=== PATIENT | female | born 1995 | race Caucasian/White ===

== ENCOUNTER 2017-05-01 16:22 | Emergency (ER) | payer BC ==
[~2017-05-01] VITALS: Ht 180.3 cm; Wt 54.4 kg
--- OUTSIDE RECORDS SUMMARY | 2017-05-01 16:28 | XMS REPORT ---
Author MANUEL [facility] eClinicalWorks Address Unknown Phone Unavailable Care Team Providers Care Apparel Fashion Designer Name Role Phone MANUEL FLORES CP Unavailable Allergies, Adverse Reactions, Alerts Substance Reaction Event Type Augmentin rash Drug Allergy Problems Problem Type Condition Code Onset Dates Condition Status Problem Anxiety F41.9 Active Problem OCP (oral contraceptive pills) initiation Z30.011 Active Problem Major depressive disorder with single episode, remission status unspecified F32.9 Active Assessment Major depressive disorder with single episode, remission status unspecified F32.9 Active Assessment Anxiety F41.9 Active Problem Acne, unspecified L70.9 Active Problem Irregular menses N92.6 Active Medications Medication Code System Code Instructions Start Date End Date Status Dosage Lexapro [facility] [address]-39 10 mg Orally Once a day Jun 01, 2016 1 tablet Procedures Procedure Coding System Code Date Office Visit, Est Pt., Level 3 CPT-4 46060 Jun 01, 2016 Vital Signs Date/Time: Jun 01, 2016 Cardiac Monitoring Heart Rate 96 bpm Weight 121 lbs Height 69 in BMI 17.87 Index Blood Pressure Diastolic 68 mmHg Blood Pressure Systolic 98 mmHg Results No Known Results Summary Purpose eClinicalWorks Submission
[2017-05-01] MEDS ORDERED: HYDR-3812 (16:54)
[2017-05-01] MEDS ORDERED: PRD20T (16:54)
[2017-05-01] MEDS ORDERED: IOHEXOL 350 MG/ML 100 ML (OMNIPAQUE 350) VIAL IV ONE (17:00)
[2017-05-01] MEDS ORDERED: NS 100 ML (IVPB) BAG IV ONE (17:00)
--- NOTE | 2017-05-01 17:03 | ED General ---
General Chief Complaint: Chest Wall/Rib Pain Stated Complaint: L SIDE RIB PAIN Nursing Triage Note: AMB TO ED C/O R RIB PAIN FOR 2 MONTHS WAS SEEN X1 WEEK AGO AT [facility] CXR NEG. WS GIVEN STEROIDS AND HYDROCODONE NOT ANHY BETTER. Nursing Sepsis Screen: No Definite Risk Source of Information: Patient Exam Limitations: No Limitations History of Present Illness Time Seen by Provider: 17:02 Initial Comments To ER with left upper rib pain for 2 months. Denies any known injury. She was seen [address] [facility] and had an x-ray done which she was told was unremarkable. She is currently on hydrocodone and steroids but denies improvement. Pain is worse with laying on the left side. She has nausea intermittently but no vomiting. She does have some swollen lymph nodes in the sore throat that began yesterday she states. Timing/Duration: Other Severity: Moderate Associated Systoms: Denies Symptoms Allergies and Home Medications Allergies Coded Allergies: amoxicillin (Verified Allergy, Unknown, 05/01/17) clavulanic acid (Verified Allergy, Unknown, 05/01/17) Home Medications Hydrocodone/Acetaminophen 1 Each Tablet, (Reported) Prednisone 20 Mg Tab, (Reported) Constitutional: see HPI, No chills, No fever EENTM: see HPI Respiratory: no symptoms reported Cardiovascular: no symptoms reported Genitourinary: no symptoms reported Musculoskeletal: no symptoms reported Skin: no symptoms reported Psychiatric/Neurological: No Symptoms Reported Hematologic/Lymphatic: No Symptoms Reported Past Jnakyvo-Wsdfis-Zihwpj Hx Patient Social History Alcohol Use: Occasionally Uses Recreational Drug Use: No Smoking Status: Current Everyday Smoker Recent Foreign Travel: No Contact w/Someone Who Travel: No Recent Infectious Disease Expo: No Seasonal Allergies Seasonal Allergies: No Surgeries History of Surgeries: No Respiratory History of Respiratory Disorde: No Cardiovascular History of Cardiac Disorders: No Neurological History of Neurological Disord: No Genitourinary History of Genitourinary Disor: No Gastrointestinal History of Gastrointestinal Di: No Musculoskeletal History of Musculoskeletal Dis: No Endocrine History of Endocrine Disorders: No Integumentary History of Skin or Integumenta: No Physical Exam Vital Signs Vital Sign - Last 12Hours 05/01/17 16:35 Temp 99.0 Pulse 74 Resp 18 B/P (MAP) 131/74 Pulse Ox 98 O2 Delivery Room Air Capillary Refill : Less Than 3 Seconds General Appearance: No Apparent Distress, WD/WN Eyes: Bilateral Eye Normal Inspection, Bilateral Eye PERRL, Bilateral Eye EOMI HEENT: PERRL/EOMI, TMs Normal, Normal ENT Inspection Neck: Full Range of Motion, Normal Inspection, No Lymphadenopathy (L), No Lymphadenopathy (R) Respiratory: No Accessory Muscle Use, No Respiratory Distress Cardiovascular: Regular Rate, Rhythm, Normal Peripheral Pulses Gastrointestinal: Non Tender, Soft Extremity: Normal Capillary Refill, No Calf Tenderness Neurologic/Psychiatric: Alert, Oriented x3 Progress/Results/Core Measures Results/Orders Lab Results Laboratory Tests Test 05/01/17 17:10 05/01/17 17:13 Range/Units White Blood Count 12.7 H 4.3-11.0 10^3/uL Red Blood Count 4.72 4.35-5.85 10^6/uL Hemoglobin 14.2 11.5-16.0 G/DL Hematocrit 42 35-52 % Mean Corpuscular Volume 89 80-99 FL Mean Corpuscular Hemoglobin 30 25-34 PG Mean Corpuscular Hemoglobin Concent 34 32-36 G/DL Red Cell Distribution Width 13.5 10.0-14.5 % Platelet Count 317 130-400 10^3/uL Mean Platelet Volume 9.9 7.4-10.4 FL Neutrophils (%) (Auto) 55 42-75 % Lymphocytes (%) (Auto) 33 12-44 % Monocytes (%) (Auto) 11 0-12 % Eosinophils (%) (Auto) 1 0-10 % Basophils (%) (Auto) 1 0-10 % Neutrophils # (Auto) 7.0 1.8-7.8 X 10^3 Lymphocytes # (Auto) 4.2 H 1.0-4.0 X 10^3 Monocytes # (Auto) 1.4 H 0.0-1.0 X 10^3 Eosinophils # (Auto) 0.1 0.0-0.3 10^3/uL Basophils # (Auto) 0.1 0.0-0.1 10^3/uL Sodium Level 140 135-145 MMOL/L Potassium Level 3.8 3.6-5.0 MMOL/L Chloride Level 103 98-107 MMOL/L Carbon Dioxide Level 29 21-32 MMOL/L Anion Gap 8 5-14 MMOL/L Blood Urea Nitrogen 11 7-18 MG/DL Creatinine 0.76 0.60-1.30 MG/DL Estimat Glomerular Filtration Rate > 60 BUN/Creatinine Ratio 14 Glucose Level 87 70-105 MG/DL Calcium Level 9.7 8.5-10.1 MG/DL Total Bilirubin 0.4 0.1-1.0 MG/DL Aspartate Amino Transf (AST/SGOT) 17 5-34 U/L Alanine Aminotransferase (ALT/SGPT) 18 0-55 U/L Alkaline Phosphatase 49 40-136 U/L Total Protein 7.5 6.4-8.2 GM/DL Albumin 4.6 H 3.2-4.5 GM/DL Monoscreen NEGATIVE NEGATIVE Urine Color OTHER H Urine Clarity CLEAR Urine pH 7 5-9 Urine Specific [place] 1.005 L 1.016-1.022 Urine Protein NEGATIVE NEGATIVE Urine Glucose (UA) NEGATIVE NEGATIVE Urine Ketones NEGATIVE NEGATIVE Urine Nitrite NEGATIVE NEGATIVE Urine Bilirubin NEGATIVE NEGATIVE Urine Urobilinogen NORMAL NORMAL MG/DL Urine Leukocyte Esterase NEGATIVE NEGATIVE Urine RBC (Auto) NEGATIVE NEGATIVE Urine RBC NONE /HPF Urine WBC NONE /HPF Urine Squamous Epithelial Cells >50 H /HPF Urine Crystals NONE /LPF Urine Bacteria NEGATIVE /HPF Urine Casts NONE /LPF Urine Mucus NEGATIVE /LPF Urine Culture Indicated NO My Orders Orders - JUAN BLEVINS APRN Cbc With Automated Diff (05/01/17 16:53) Comprehensive Metabolic Panel (05/01/17 16:53) Monotest (05/01/17 16:53) Saline Lock/Iv-Start (05/01/17 16:53) Iohexol Injection (Omnipaque 350 Mg/Ml 1 (05/01/17 17:00) Ns (Ivpb) (Sodium Chloride 0.9% Ivpb Bag (05/01/17 17:00) Ua Culture If Indicated (05/01/17 17:01) Urine Bedside (05/01/17 17:01) Ct Chest/Abdomen W (05/01/17 17:01) Ketorolac Injection (Toradol Injection) (05/01/17 18:00) Medications Given in ED Current Medications Medications Dose Ordered Sig/Carmen Route Start Time Stop Time Status Last Admin Dose Admin Iohexol 100 ml ONCE ONCE IV 05/01/17 17:00 05/01/17 17:02 DC 05/01/17 17:35 100 ML Sodium Chloride 100 ml ONCE ONCE IV 05/01/17 17:00 05/01/17 17:02 DC 05/01/17 17:35 100 ML Vital Signs/I&O Vital Sign - Last 12Hours 05/01/17 16:35 Temp 99.0 Pulse 74 Resp 18 B/P (MAP) 131/74 Pulse Ox 98 O2 Delivery Room Air Blood Pressure Mean: 93 Diagnostic Imaging Diagonstic Imaging: Xray Comments NAME: JADEN SUMMERS [facility] REC#: [id number] PT STATUS: REG ER : 1995 PHYSICIAN: JUAN BLEVINS QUALITY ASSURANCE COACH ADMIT DATE: 05/01/17/ER Draft Date of Exam:05/01/17 CT CHEST/ABDOMEN W PROCEDURE: CT chest and abdomen with contrast. TECHNIQUE: Multiple contiguous axial images were obtained through the chest and abdomen after the administration of intravenous contrast. INDICATION: 22-year-old female presents with nausea, chest pain, rib pain with pain radiating to the back on the left side. The patient has been persistent for approximately 2 months but has been increasing un intensity over the last 2 weeks. COMPARISONS: 07/28/10. CT CHEST: FINDINGS: There is no evidence of axillary adenopathy. A few shotty benign-appearing axillary nodes are seen. There is no evidence of hilar or mediastinal adenopathy. Cardiac contour is normal. Thoracic aorta contours are also normal with no evidence of aneurysm or dissection. The pulmonary outflow tract as well as the right and left pulmonary arteries and their segmental branches are patent. The lungs are clear. There is no consolidation, effusion or pneumothorax. Bone windows showed no overall gross abnormalities. There is slight asymmetry in the visualized portions of the sternocleidomastoid muscles with the left being slightly more prominent than right. This may be positional. Bone windows show no overall gross abnormalities. The axial skeleton shows normal vertebral alignment. No lytic or blastic changes seen. No obvious fracture is identified. No sternal abnormalities identified. IMPRESSION: Essentially unremarkable postcontrast CT chest. CT abdomen: Findings: Liver shows uniform attenuation. There is no intraparenchymal mass or ductal dilatation. Gallbladder, spleen, GE junction, stomach and duodenal sweep are normal. Pancreas shows sharp margins. Adrenals are normal the kidneys show symmetrical perfusion and excretion of contrast. Visualized nonopacified loops of small bowel and large bowel are grossly normal. Appendix is unremarkable. Bone windows show no overall gross amounts. Visualized vasculature shows normal caliber of the aorta, iliac arteries. There is normal origin the visceral arteries. Impression: Unremarkable postcontrast CT of the abdomen. Dictated on workstation # [id number] Dict: 05/01/17 1754 Trans: 05/01/17 180 [facility] [id number] Interpreted by: REN RAMIREZ MD Electronically signed by: Departure Impression Impression: Primary Impression: Chest wall pain Disposition: 01 HOME, SELF-CARE Condition: Improved Departure-Patient Inst. Decision time for Depature: 18:07 Referrals: NO,LOCAL PHYSICIAN (PCP/Family) Primary Care Physician Patient Instructions: Chest Pain (DC), Costochondritis (DC) Add. Discharge Instructions: All discharge instructions reviewed with patient and/or family. Voiced understanding. JUAN BLEVINS APRN May 01, 2017 17:03
[2017-05-01 17:20] LABS: BASOPHILS # (AUTO) 0.1 10^3/uL (0.0-0.1); BASOPHILS % (AUTO) 1 % (0-10); EOSINOPHILS # (AUTO) 0.1 10^3/uL (0.0-0.3); EOSINOPHILS % (AUTO) 1 % (0-10); LYMPHOCYTES # (AUTO) 4.2 X 10^3 (1.0-4.0); LYMPHOCYTES % (AUTO) 33 % (12-44); MEAN CORPUSCULAR HEMOGLOBIN 30 PG (25-34); MEAN CORPUSCULAR HGB CONC 34 G/DL (32-36); MEAN CORPUSCULAR VOLUME 89 FL (80-99); MEAN PLATELET VOLUME 9.9 FL (7.4-10.4); MONOCYTES # (AUTO) 1.4 X 10^3 (0.0-1.0); MONOCYTES % (AUTO) 11 % (0-12); NEUTROPHILS % (AUTO) 55 % (42-75); PLATELET COUNT 317 10^3/uL (130-400); RED BLOOD COUNT 4.72 10^6/uL (4.35-5.85); RED CELL DISTRIBUTION WIDTH 13.5 % (10.0-14.5); WHITE BLOOD COUNT 12.7 10^3/uL (4.3-11.0)
[2017-05-01 17:21] LABS: BILIRUBIN,URINE NEGATIVE (NEGATIVE); KETONES,URINE NEGATIVE (NEGATIVE); LEUKOCYTE ESTERASE ,URINE NEGATIVE (NEGATIVE); NITRITE,URINE NEGATIVE (NEGATIVE); PH,URINE 7 (5-9); PROTEIN,URINE NEGATIVE (NEGATIVE); UROBILINOGEN,URINE NORMAL (NORMAL)
[2017-05-01 17:37] LABS: SQUAMOUS EPITHELIAL CELL,UR >50 /HPF
[2017-05-01 17:42] LABS: ALANINE AMINOTRANSFERASE 18 U/L (0-55); ALBUMIN 4.6 GM/DL (3.2-4.5); ANION GAP 8 MMOL/L (5-14); ASPARTATE AMINO TRANSFERASE 17 U/L (5-34); BILIRUBIN,TOTAL 0.4 MG/DL (0.1-1.0); BLOOD UREA NITROGEN 11 MG/DL (7-18); BUN/CREATININE RATIO 14; CALCIUM 9.7 MG/DL (8.5-10.1); CARBON DIOXIDE 29 MMOL/L (21-32); CHLORIDE 103 MMOL/L (98-107); CREATININE SERUM 0.76 MG/DL (0.60-1.30); GFR ESTIMATED > 60; GLUCOSE 87 MG/DL (70-105); POTASSIUM 3.8 MMOL/L (3.6-5.0); SODIUM 140 MMOL/L (135-145); TOTAL PROTEIN 7.5 GM/DL (6.4-8.2)
[2017-05-01] MEDS ORDERED: KETOROLAC 30 MG/ML VIAL IVP ONE (18:00)
--- NOTE | 2017-05-01 18:04 | Diagnostic Imaging Report ---
PROCEDURE: CT chest and abdomen with contrast. TECHNIQUE: Multiple contiguous axial images were obtained through the chest and abdomen after the administration of intravenous contrast. INDICATION: 22-year-old female presents with nausea, chest pain, rib pain with pain radiating to the back on the left side. The patient has been persistent for approximately 2 months but has been increasing un intensity over the last 2 weeks. COMPARISONS: 07/28/10. CT CHEST: FINDINGS: There is no evidence of axillary adenopathy. A few shotty benign-appearing axillary nodes are seen. There is no evidence of hilar or mediastinal adenopathy. Cardiac contour is normal. Thoracic aorta contours are also normal with no evidence of aneurysm or dissection. The pulmonary outflow tract as well as the right and left pulmonary arteries and their segmental branches are patent. The lungs are clear. There is no consolidation, effusion or pneumothorax. Bone windows showed no overall gross abnormalities. There is slight asymmetry in the visualized portions of the sternocleidomastoid muscles with the left being slightly more prominent than right. This may be positional. Bone windows show no overall gross abnormalities. The axial skeleton shows normal vertebral alignment. No lytic or blastic changes seen. No obvious fracture is identified. No sternal abnormalities identified. IMPRESSION: Essentially unremarkable postcontrast CT chest. CT abdomen: Findings: Liver shows uniform attenuation. There is no intraparenchymal mass or ductal dilatation. Gallbladder, spleen, GE junction, stomach and duodenal sweep are normal. Pancreas shows sharp margins. Adrenals are normal the kidneys show symmetrical perfusion and excretion of contrast. Visualized nonopacified loops of small bowel and large bowel are grossly normal. Appendix is unremarkable. Bone windows show no overall gross amounts. Visualized vasculature shows normal caliber of the aorta, iliac arteries. There is normal origin the visceral arteries. Impression: Unremarkable postcontrast CT of the abdomen. Dictated by: Dictated on workstation # [id number]
[2017-05-01 18:35] VITALS: BP 128/74
== END 2017-05-01 18:21 | disposition home or self-care (01) ==
LOC: EDUNIT# 16:22 → ER 16:25
DX: R07.89 Other chest pain (principal); F17.200 Nicotine dependence, unspecified, uncomplicated
CPT/HCPCS: 36415; 71260; 74160; 80053; 81000; 84703; 85025; 86308

== ENCOUNTER 2019-05-09 07:00 | Inpatient (IN) | payer BC, MEDICAID ==
[2019-05-09] VITALS (52 sets, daily range): BP systolic 92–137; BP diastolic 55–85
[~2019-05-09] VITALS: Ht 178.5 cm; Wt 75.2 kg
[~2019-05-09 07:00] MED LIST: ACHD5005; PRD20T
--- NOTE | 2019-05-09 07:00 | NUR ---
Arrived to unit for induction of labor. wt obtained and to room 320. gowned and urine sample obtained. To bed and oriented to room, bed controls. plan of care reviewed with pt and s.o.
[2019-05-09] MEDS ORDERED: D5 LR IV SOLUTION 1,000 ML IV ONE (07:47)
[2019-05-09] MEDS ORDERED: OXYTOCIN/NORMAL SALINE 500 ML IV ONE (07:47)
[2019-05-09] MEDS ORDERED: OXYTOCIN/NORMAL SALINE 500 ML IV SCH ×2 (08:04→18:44)
--- NOTE | 2019-05-09 08:09 | History & Physical ---
History and Physical Date Seen by Provider: May 09, 2019 Time Seen by Provider: 08:07 This patient is a 23-year-old G1 white female with an EDC of 9 [phone] placing her now past 39 weeks gestation. She is admitted for elective induction of labor. Her has been complicated by PUPPP that has seemingly resolved currently. She is also had an issue with GERD. She has been stable on Zantac. Her GBS culture after 35 weeks gestation was negative. She denies rupture or bleeding. Allergies are to Augmentin which causes rash Medications are vitamins and Zantac Medical social and surgical histories are per the antepartum record HEENT exam is normal Neck supple no lymphadenopathy no thyromegaly Abdomen is gravid soft nontender nondistended Extreme show no clubbing cyanosis. There is no Homans sign. Pelvic exam shows cervix to see Ms. dilated 70 percent face 0 station soft with mid position of the cervix. Membranes are intact. Amniotomy was performed with this exam. Assessment and plan term at 39+ weeks gestation admitted for elective induction of labor. Amniotomy has been performed. Patient will be induced with Pitocin. We anticipate a vaginal delivery 39 week elective induction of labor Allergies and Home Medications Allergies Coded Allergies: amoxicillin (Verified Allergy, Unknown, 05/01/17) clavulanic acid (Verified Allergy, Unknown, 05/01/17) Patient Home Medication List Home Medication List Reviewed: Yes VIRIDIANA PATEL MD May 09, 2019 08:09
[2019-05-09] MEDS: D5 LR IV SOLUTION 1,000 ML IV SCH ×2 (08:13→14:42)
[2019-05-09] MEDS ORDERED: CITRIC ACID/SOB CIT (BICITRA) 30 ML UDC PO NR (08:15)
[2019-05-09 08:16] LABS: BASOPHILS % (AUTO) 0 % (0-10); EOSINOPHILS # (AUTO) 0.2 10^3/uL (0.0-0.3); EOSINOPHILS % (AUTO) 2 % (0-10); HEMATOCRIT 33 % (35-52); HEMOGLOBIN 10.9 G/DL (11.5-16.0); LYMPHOCYTES # (AUTO) 2.7 X 10^3 (1.0-4.0); LYMPHOCYTES % (AUTO) 24 % (12-44); MEAN CORPUSCULAR HEMOGLOBIN 29 PG (25-34); MEAN CORPUSCULAR HGB CONC 33 G/DL (32-36); MEAN CORPUSCULAR VOLUME 87 FL (80-99); MEAN PLATELET VOLUME 10.5 FL (7.4-10.4); MONOCYTES # (AUTO) 0.9 X 10^3 (0.0-1.0); MONOCYTES % (AUTO) 8 % (0-12); NEUTROPHILS # (AUTO) 7.5 X 10^3 (1.8-7.8); NEUTROPHILS % (AUTO) 66 % (42-75); PLATELET COUNT 265 10^3/uL (130-400); RED CELL DISTRIBUTION WIDTH 13.5 % (10.0-14.5); WHITE BLOOD COUNT 11.4 10^3/uL (4.3-11.0)
[2019-05-09] MEDS ORDERED: ONDANSETRON 4 MG/2 ML (SDV) Z0FRAN ONE (11:42)
[2019-05-09] MEDS ORDERED: BUPIVACAINE 0.25% 30 ML (SENSORCAINE) VIAL ONE (11:58)
[2019-05-09] MEDS ORDERED: fentaNYL INJECTION 100 MCG/2 ML AMP ONE (11:58)
[2019-05-09] MEDS ORDERED: ONDANSETRON 4 MG/2 ML (SDV) Z0FRAN IVP ONE (12:00)
[2019-05-09] MEDS ORDERED: SUFENTA 0.6MCG/ML BUPIVA 0.125 100 ML ONE (12:16)
[2019-05-09] MEDS ORDERED: LACTATED RINGERS 1,000 ML IV ONE (13:32)
[2019-05-09] MEDS ORDERED: EPIDURAL (SUFENTA 0.6MCG/ML BUPIVA 0.125%) 100 ML BAG EPI SCH (13:45)
[2019-05-09] MEDS ORDERED: diphenhydrAMINE 50 MG/ML INJ (BENADRYL) IV PRN (13:45)
[2019-05-09] MEDS ORDERED: CATHETER FLUSH 10 ML SYR IV PRN (13:45)
[2019-05-09] MEDS ORDERED: NALOXONE 0.4 MG/ML 1 ML (NARCAN) VIAL IV PRN (13:45)
[2019-05-09] MEDS ORDERED: ONDANSETRON 4 MG/2 ML (SDV) Z0FRAN IV PRN (13:45)
[2019-05-09] MEDS ORDERED: RANI-613 PO (14:14)
[2019-05-09] MEDS ORDERED: LIDOCAINE/EPI 2% 1:200,00 (XYLOCAINE) 10 ML VIAL ONE ×2 (16:25→17:29)
--- NOTE | 2019-05-09 18:07 | NUR ---
Spontaneous vaginal delivery of placenta with cord attached. perineum examined per dr carlos. fundal massage by this rn with moderate rubra noted, no clots expressed. pitocin increased to 60ml/hr as ordered by dr carlos. 1809 repair of midline episiotomy started per dr carlos 1817 ffu/0 with lt-mod rubra noted, no clot expressed. pericare and pad under pt. pt assisted out of lithotomy position and to sf position. plan of care reviewed with pt. fresh ice water to bedside table. 1832 vss ffu/0 with moderate rubra noted, no clots expressed. 1847 vss ffu/0 with moderate to heavy rubra noted, no clots expressed. pad changed at this time/pericare 1902 vss. ffu/0 with lt rubra noted, no clot expressed. visitors at bedside.
[2019-05-09] MEDS ORDERED: BENZOCAINE/MENTHOL (DERMOPLAST) 56 ML CAN TP PRN (18:45)
[2019-05-09] MEDS ORDERED: MEASLES,MUMPS,RUBELLA 1 EA INJ SC ONE (18:45)
[2019-05-09] MEDS ORDERED: KETOROLAC 30 MG/ML VIAL IVP PRN (18:45)
[2019-05-09] MEDS ORDERED: TETANUS,DIPTH,PERTUSS P/F (BOOSTRIX) 0.5 ML VIAL IM ONE (18:45)
[2019-05-09] MEDS ORDERED: oxyCODONE/APAP 5/325MG (PERCOCET 5) TABLET PO PRN (18:45)
[2019-05-09] MEDS ORDERED: ONDANSETRON 4 MG/2 ML (SDV) Z0FRAN IVP PRN (18:45)
--- NOTE | 2019-05-09 19:30 | NUR ---
PT SITTING IN LABOR BED HOLDING . VS REMAIN STABLE, S.O. AT BEDSIDE. FFU/2 LIGHT RUBRA NOTED. PLAN OF CARE REVIEWED, ASSISTED WITH AT THIS TIME.
--- NOTE | 2019-05-09 20:00 | NUR ---
FFU/2 SCANT RUBRA NOTED.
--- NOTE | 2019-05-09 20:30 | NUR ---
FFU/2 SMALL RUB NOTED, PERICARE GIVEN. WILL PREPARE TO GET UP TO VOID AND TRANSFER TO PP ROOM.
--- NOTE | 2019-05-09 20:50 | NUR ---
PT UP TO SIDE OF BED AND AMBULATED TO BATHROOM WITH STANDBY ASSIST. VOID NOTED, PERICARE DEMONSTRATED AND DISCUSSED, CLEAN VPAD AND MESH PANTIES APPLIED. CLEAN GOWN IN PLACE. PT TO WHEELCHAIR TO TRANSFER ROOMS. IN CRIB AND BELONGINGS TO NEW ROOM. 2109 PT IN PP ROOM, INFO PAPERS EXPLAINED. PT ORIENTED TO ROOM AND CALL LIGHT. S.O. AND MOTHER AT BEDSIDE. FRESH ICE WATER GIVEN. ICE PACK TO LOWER BACK FOR PAIN PER PT REQUEST. FOOD BROUGHT IN FROM FAMILY, PT EATING NOW.
--- NOTE | 2019-05-09 22:20 | NUR ---
PT RESTING IN BED AWAKE WITH S.O. AND AT SIDE. DENIES NEEDS.
--- NOTE | 2019-05-09 23:02 | NUR ---
PT AT THIS TIME, S.O. REMAINS AT BEDSIDE.
--- NOTE | 2019-05-09 23:46 | OPERATIVE REPORT ---
DATE OF SERVICE: 05/09/2019 The patient delivered by term spontaneous vaginal delivery a viable male with Apgars of 8 and 9 at 1 and 5 minutes respectively, weight of 8 pounds. Cord blood pH of 7.27 and a time of 18:02. The infant was delivered over a midline episiotomy that was performed at the patient's request to shorten the second stage of labor as she could not expel the baby through the perineum. The episiotomy was performed. Delivery was accomplished fairly promptly thereafter. The infant was bulb suctioned on delivery of the head and again on completion of delivery. The umbilical cord was doubly clamped, father cut the cord, the baby was passed to mom's abdomen. Cord bloods were obtained. The placenta delivered spontaneously [place]. It was normal with a 3-vessel cord. The cervix, vagina, rectum, and perineum were examined and found intact, except for the midline episiotomy, which was repaired with a single suture of 3-0 Vicryl Rapide in the usual manner without difficulty to good reapproximation and good hemostasis. Sponge and needle counts were correct on completion of delivery and repair. Estimated blood loss was around 200 mL. The patient tolerated the procedure well and remained in the LDR for recovery. The baby remained with the mom. Job ID: [id number] DocumentID: [id number] Dictated Date: 05/09/2019 18:20:46 Benefits Specialist Date: 05/09/2019 23:45:26 Dictated By: VIRIDIANA PATEL MD
[2019-05-10] MEDS ORDERED: IBUPROFEN 800 MG (MOTRIN) TAB PO ONE (02:38)
[2019-05-10 03:00] VITALS: BP 109/69
--- NOTE | 2019-05-10 03:15 | NUR ---
Fresh ice water given, assisted pt with , pt states has been up to void and did pericare without difficulty.
[2019-05-10] MEDS: IBUPROFEN 800 MG (MOTRIN) TAB PO SCH ×3 (03:17→12:00)
--- NOTE | 2019-05-10 06:52 | Anesthesia-Regional Post-Op ---
Regional Patient Condition Mental Status: Alert, Oriented x3 Circulation: Same as Pre-Op Headache: Absent Sensation: Full Recovery Motor Block: Absent Post Op Complications Complications None Follow Up Care/Instructions Patient Instructions None needed. Anesthesia/Patient Condition Patient is doing well, no complaints, stable vital signs, no apparent adverse anesthesia problems. No complications reported per nursing. D/C home per [facility] Criteria: MOY Jeong CRNA May 10, 2019 06:51
--- NOTE | 2019-05-10 07:50 | Progress Note ---
Standard Progress Note Progress Notes/Assess & Plan Date Seen by a Provider: May 10, 2019 Time Seen by a Provider: 07:49 Progress/Assessment & Plan This patient is without complaint. She is ablating, voiding, tolerating oral intake well has good pain control. Vital Signs 05/09/19 05/10/19 17:15 03:00 Temp 36.4 Pulse 75 Resp 16 B/P (MAP) 109/69 (82) Pulse Ox 100 O2 Delivery Room Air Vital signs are stable. Patient is afebrile. Fundus is firm below the umbilicus and nontender. Extremities show no clubbing or cyanosis. There is no Homans sign. There is some pretibial pitting edema that is normal. Assessment and plan day number 1 status post term spontaneous vaginal delivery at 39+ weeks' gestation. Patient doing well and will be discharged home today or tomorrow as she prefers Final Diagnosis 39 week spontaneous vaginal delivery VIRIDIANA PATEL MD May 10, 2019 07:50
[2019-05-10] MEDS ORDERED: DOCU100C37 PO (07:51)
[2019-05-10] MEDS ORDERED: IBUP-1780 PO (07:51)
[2019-05-10] MEDS ORDERED: OXYC1TAB87 PO (07:51)
--- NOTE | 2019-05-10 07:52 | Discharge Instructions ---
Discharge Instructions Discharge Medications New, Converted or Re-Newed RX: RX on Chart Patient Instructions Return to The Hospital For: As directed Activity & Diet Discharge Diet: No Restrictions Activity as Tolerated: No Orders-Post D/C & Referrals Follow Up Appt: Call to make follow up appt. for patient in 4 weeks. Activity Per routine post vaginal delivery instructions. Please call in RX to patient pharmacy. Diet as tolerated Patient may shower or tub bathe as desired. VIRIDIANA PATEL MD May 10, 2019 07:52
[2019-05-10 08:40] VITALS: BP 105/62
[2019-05-10] MEDS: DOCUSATE SODIUM 100 MG (COLACE) CAP PO SCH ×3 (09:00→20:35)
[2019-05-10 12:30] VITALS: BP 119/78
[2019-05-10] MEDS ORDERED: TETANUS,DIPTH,PERTUSS P/F (BOOSTRIX) 0.5 ML VIAL IM ONE (13:27)
--- NOTE | 2019-05-10 14:13 | NUR ---
report received from MONIQUE Oshea. care assumed of pt.
--- NOTE | 2019-05-10 16:30 | NUR ---
stork meal served.
[2019-05-10 16:50] VITALS: BP 119/60
--- NOTE | 2019-05-10 19:15 | NUR ---
report given to MONIQUE Worley.
--- NOTE | 2019-05-10 19:16 | NUR ---
REPORT RECEIVED AND CARES RESUMED BY THIS NURSE.
[2019-05-10 20:35] VITALS: BP 115/71
--- NOTE | 2019-05-10 20:35 | NUR ---
INITIAL SHIFT ASSESSMENT DONE. VSS. PT GETTING UP TO VOID. DENIES ANY C/O'S OR CONCERNS. REPORTS ONLY PAIN WITH POSITION CHANGE. DENIES THE NEED FOR PAIN MEDS.
--- NOTE | 2019-05-10 23:10 | NUR ---
PT PROVIDING CARES FOR INFANT. DENIES ANY NEEDS OR C/O'S AT THIS TIME.
[2019-05-11] MEDS: IBUPROFEN 800 MG (MOTRIN) TAB PO SCH ×2 (00:40→06:30)
--- NOTE | 2019-05-11 00:40 | NUR ---
MOTRIN ADMINISTERED. PT DENIES ANY NEEDS AT THIS TIME.
--- NOTE | 2019-05-11 06:30 | NUR ---
MOTRIN ADMINISTERED. PT EXHAUSTED AND REQUESTS INFANT BE TAKEN TO [facility] SO SHE MAY NAP. DENIES ANY FURTHER NEEDS.
[2019-05-11 08:10] VITALS: BP 120/68
[2019-05-11] MEDS: DOCUSATE SODIUM 100 MG (COLACE) CAP PO SCH (08:55)
--- NOTE | 2019-05-11 09:45 | Progress Note ---
Standard Progress Note Progress Notes/Assess & Plan Date Seen by a Provider: May 11, 2019 Time Seen by a Provider: 09:44 Progress/Assessment & Plan This patient is without complaint. She is ablating, voiding, tolerating oral intake well has good pain control. Vital Signs 05/09/19 05/10/19 17:15 03:00 Temp 36.4 Pulse 75 Resp 16 B/P (MAP) 109/69 (82) Pulse Ox 100 O2 Delivery Room Air Vital signs are stable. Patient is afebrile. Fundus is firm below the umbilicus and nontender. Extremities show no clubbing or cyanosis. There is no Homans sign. There is some pretibial pitting edema that is normal. Assessment and plan day number 1 status post term spontaneous vaginal delivery at 39+ weeks' gestation. Patient doing well and will be discharged home today or tomorrow as she prefers May 11, 2019 Patient is without complaint. She is ambulating, voiding, tolerating oral intake well has good pain control. Patient is requesting discharge home. Vital Signs 05/10/19 20:35 Temp 37.1 Pulse 81 Resp 18 B/P (MAP) 115/71 (86) Pulse Ox 99 O2 Delivery Room Air Vital signs are stable. Patient afebrile. Fundus is firm below the umbilicus and nontender. Extremities show no clubbing cyanosis there is no Homans sign. There is some pretibial pitting edema that is normal Assessment and plan day number 2 status post term spontaneous vaginal delivery at 38+ weeks gestation as well. Plan is for discharge home with follow-up in clinic Final Diagnosis 38 week spontaneous vaginal delivery VIRIDIANA PATEL MD May 11, 2019 09:45
[2019-05-14] MEDS ORDERED: IBUPROFEN 800 MG (MOTRIN) TAB PO SCH (18:00)
== END 2019-05-11 13:40 | disposition home or self-care (01) | DRG 807 ==
LOC: LDRP 07:00
PROVIDERS: ADMIT Obstetrics & Gynecology; ATTEND Obstetrics & Gynecology
PROC: 3E033VJ Introduction of Other Hormone into Peripheral Vein, Percutaneous Approach (ICD-10-PCS; 2019-05-09)
PROC: 10E0XZZ Delivery of Products of Conception, External Approach (ICD-10-PCS; principal; 2019-05-10)
PROC: 0W8NXZZ Division of Female Perineum, External Approach (ICD-10-PCS; 2019-05-10)
DX: O99.62 Diseases of the digestive system complicating childbirth (principal); O26.86 Pruritic urticarial papules and plaques of pregnancy (PUPPP); K21.9 Gastro-esophageal reflux disease without esophagitis; Z3A.39 39 weeks gestation of pregnancy; Z37.0 Single live birth; Z87.891 Personal history of nicotine dependence
CPT/HCPCS: 36415; 85025; 90715

== ENCOUNTER 2021-02-24 20:58 | Emergency (ER) | payer MEDICAID ==
[~2021-02-24] VITALS: Ht 177.8 cm; Wt 56.7 kg
[~2021-02-24 20:58] MED LIST changes: +DOCU100C37 PO; +IBUP-1780 PO; +OXYC1TAB87 PO; +RANI-613 PO
[2021-02-24 21:13] LABS: CLARITY,URINE CLEAR; COLOR,URINE YELLOW; GLUCOSE, URINE (UA) NEGATIVE (NEGATIVE); KETONES,URINE 3+ (NEGATIVE); LEUKOCYTE ESTERASE ,URINE NEGATIVE (NEGATIVE); NITRITE,URINE NEGATIVE (NEGATIVE); PH,URINE 5.5 (5-9); PROTEIN,URINE TRACE (NEGATIVE)
[2021-02-24 21:50] LABS: BACTERIA,URINE FEW /HPF; BILIRUBIN,URINE 1+ (NEGATIVE)
[2021-02-24 21:52] LABS: AMORPHOUS SEDIMENT,UR FEW AMOR URATES /LPF
[2021-02-24 22:07] LABS: BASOPHILS % (AUTO) 0 % (0-10); EOSINOPHILS % (AUTO) 0 % (0-10); HEMATOCRIT 46 % (35-52); HEMOGLOBIN 15.3 g/dL (11.5-16.0); LYMPHOCYTES # (AUTO) 0.4 10^3/uL (1.0-4.0); LYMPHOCYTES % (AUTO) 3 % (12-44); MEAN CORPUSCULAR HEMOGLOBIN 30 pg (25-34); MEAN CORPUSCULAR HGB CONC 33 g/dL (32-36); MEAN CORPUSCULAR VOLUME 89 fL (80-99); MEAN PLATELET VOLUME 9.8 fL (9.0-12.2); MONOCYTES # (AUTO) 0.5 10^3/uL (0.0-1.0); MONOCYTES % (AUTO) 3 % (0-12); NEUTROPHILS # (AUTO) 14.5 10^3/uL (1.8-7.8); NEUTROPHILS % (AUTO) 94 % (42-75); PLATELET COUNT 280 10^3/uL (130-400); WHITE BLOOD COUNT 15.5 10^3/uL (4.3-11.0)
[2021-02-24] MEDS ORDERED: LACTATED RINGERS 1,000 ML IV ONE (22:15)
[2021-02-24] MEDS ORDERED: fentaNYL INJ 100 MCG/2 ML AMP IVP ONE (22:15)
[2021-02-24] MEDS ORDERED: FAMOTIDINE 20MG/2ML IV (PEPCID) IVP ONE (22:15)
[2021-02-24] MEDS ORDERED: ONDANSETRON 4 MG/2 ML (SDV) Z0FRAN IVP ONE (22:15)
[2021-02-24 22:16] LABS: ALBUMIN 4.8 GM/DL (3.2-4.5); CHLORIDE 105 MMOL/L (98-107); POTASSIUM 4.7 MMOL/L (3.6-5.0); SODIUM 142 MMOL/L (135-145)
[2021-02-24 22:18] LABS: CALCIUM 9.3 MG/DL (8.5-10.1)
[2021-02-24 22:19] LABS: GLUCOSE 91 MG/DL (70-105); TOTAL PROTEIN 8.2 GM/DL (6.4-8.2)
[2021-02-24 22:20] LABS: CARBON DIOXIDE 18 MMOL/L (21-32)
[2021-02-24 22:21] LABS: BILIRUBIN,TOTAL 1.1 MG/DL (0.1-1.0)
[2021-02-24 22:22] LABS: ALKALINE PHOSPHATASE 60 U/L (40-136)
[2021-02-24 22:23] LABS: CREATININE SERUM 0.84 MG/DL (0.60-1.30); GFR ESTIMATED > 60
[2021-02-24 22:24] LABS: BUN/CREATININE RATIO 23
[2021-02-24 22:26] LABS: ALANINE AMINOTRANSFERASE 13 U/L (0-55); LIPASE 16 U/L (8-78)
[2021-02-24 23:09] LABS: LYMPHOCYTES % (MANUAL) 3 %; MONOCYTES % (MANUAL) 2 %; NEUTROPHILS % (MANUAL) 95 %; RBC MORPH NORMAL
[2021-02-25] MEDS ORDERED: KETOROLAC 30 MG/ML VIAL IVP ONE
[2021-02-25] MEDS ORDERED: LACTATED RINGERS 1,000 ML IV ONE
[2021-02-25] MEDS ORDERED: ANTACID SUSP 30 ML UDC (MYLANTA) PO ONE
[2021-02-25] MEDS ORDERED: LIDOCAINE 2% VISCOUS 15 ML UDC PO ONE
[2021-02-25] MEDS ORDERED: PROMETHAZINE INJ 25 MG/ML (PHENERGAN) AMP IVP ONE
--- NOTE | 2021-02-25 01:47 | ED Abdominal Pain ---
General Chief Complaint: Abdominal/GI Problems Stated Complaint: UPPER ABD PAIN / TENDERNESS / PELVIC PAIN N/V Nursing Triage Note: AMBULATES TO ROOM #7 W/CO ABD DISCOMFORT, NAUSEA, VOMITING, AND FEVER. PT REPORTS SUDDEN ONSET OF ABD PAIN DESCRIBED "SHARP" TO MEDIAL UPPER AND BILAT LOWER ABD BEGINNING AT 1100 ON THIS DAY. PT REPORTS SHORTLY AFTER ONSET OF PAIN SHE BEGAN TO EXPERIENCE NAUSEA AND VOMITING STATING, " I CAN'T KEEP ANYTHING DOWN." REPORTS SHE TESTED + FOR COVID-19 <90 DAYS AGO. Source of Information: Patient Exam Limitations: No Limitations History of Present Illness Date Seen by Provider: Feb 24, 2021 Time Seen by Provider: 21:02 Initial Comments This 26-year-old young lady presents to the emergency room with complaints of multifocal abdominal pain started around 11: 00 this morning. She started feeling nauseated and tired. Then around noon she started vomiting. She denies diarrhea or constipation. She had some fever and chills as well. The lower abdominal pain was crampy in nature. She also has epigastric pain. She does have a history of GERD. She is currently breast-feeding. Allergies and Home Medications Allergies Coded Allergies: amoxicillin (Verified Allergy, Unknown, 05/01/17) clavulanic acid (Verified Allergy, Unknown, 05/01/17) Home Medications Docusate Sodium 100 Mg Capsule, 100 MG PO BID Prescribed by: VIRIDIANA HERNANDEZ on 05/10/19750 Famotidine 20 Mg Tablet, 20 MG PO BID Prescribed by: MARIE CHEEK on 02/25/21 014 Ibuprofen 800 Mg Tablet, 800 MG PO Q6HR Prescribed by: VIRIDIANA HERNANDEZ on 05/10/19 075 Ondansetron HCl 4 Mg Tab, 4 MG SL Q4H PRN for NAUSEA/VOMITING Prescribed by: MARIE CHEEK on 02/25/21 0149 Oxycodone HCl/Acetaminophen 1 Each Tablet, 1 TAB PO Q4H PRN for PAIN-MODERATE Prescribed by: VIRIDIANA HERNANDEZ on 05/10/19 075 Ranitidine HCl 150 Mg Tablet, 150 MG PO DAILY, (Reported) Patient Home Medication List Home Medication List Reviewed: Yes Review of Systems Review of Systems Constitutional: see HPI EENTM: No Symptoms Reported Respiratory: No Symptoms Reported Cardiovascular: No Symptoms Reported Gastrointestinal: See HPI Genitourinary: No Symptoms Reported Musculoskeletal: no symptoms reported Skin: no symptoms reported Psychiatric/Neurological: No Symptoms Reported Endocrine: No Symptoms Reported Hematologic/Lymphatic: No Symptoms Reported Past Huyucyi-Ldbbfh-Zoqifo Hx Patient Social History Tobacco Use?: No Substance use?: No Pt feels they are or have been: No Immunizations Up To Date PED Vaccines UTD: Yes Seasonal Allergies Seasonal Allergies: No Past Medical History Surgeries: No Respiratory: No Cardiac: No Neurological: No Genitourinary: No Gastrointestinal: No Musculoskeletal: No Endocrine: No HEENT: No Cancer: No Psychosocial: No Integumentary: No Blood Disorders: No Adverse Reaction/Blood Tranf: No Family Medical History Hypercholesterolemia 19 FATHER Hypertension 19 FATHER Physical Exam Vital Signs Vital Signs - First Documented 02/24/21 21:45 Temp 37.1 Pulse 90 Resp 18 B/P (MAP) 120/76 (91) Pulse Ox 100 O2 Delivery Room Air Capillary Refill : Less Than 3 Seconds Height/Weight/BMI Height: 5'11.00" Weight: 120lbs. oz. 54.566153pi; 17.00 BMI Method:Stated General Appearance: WD/WN, no apparent distress HEENT: normal ENT inspection, pharynx normal Neck: normal inspection Respiratory: lungs clear, normal breath sounds, no respiratory distress, no accessory muscle use Cardiovascular: regular rate, rhythm, no edema, no murmur Gastrointestinal: normal bowel sounds, soft, tenderness (Epigastric and bilateral pelvic tenderness) Extremities: normal inspection, no pedal edema Back: no CVA tenderness Neurologic/Psychiatric: swatch clerk II-XII nml as tested, no motor/sensory deficits, alert, normal mood/affect, oriented x 3 Skin: normal color, warm/dry Progress/Results/Core Measures Results/Orders Lab Results Laboratory Tests Test 02/24/21 21:02 02/24/21 21:50 02/24/21 21:58 Range/Units Urine Color YELLOW Urine Clarity CLEAR Urine pH 5.5 5-9 Urine Specific [place] >=1.030 1.016-1.022 Urine Protein TRACE H NEGATIVE Urine Glucose (UA) NEGATIVE NEGATIVE Urine Ketones 3+ H NEGATIVE Urine Nitrite NEGATIVE NEGATIVE Urine Bilirubin 1+ H NEGATIVE Urine Urobilinogen 0.2 < = 1.0 MG/DL Urine Leukocyte Esterase NEGATIVE NEGATIVE Urine RBC (Auto) NEGATIVE NEGATIVE Urine RBC NONE /HPF Urine WBC 2-5 /HPF Urine Squamous Epithelial Cells 10-25 H /HPF Urine Crystals PRESENT H /LPF Urine Amorphous Sediment FEW DALILA URATES H /LPF Urine Bacteria FEW H /HPF Urine Casts NONE /LPF Urine Mucus MODERATE H /LPF Urine Culture Indicated NO White Blood Count 15.5 H 4.3-11.0 10^3/uL Red Blood Count 5.18 H 3.80-5.11 10^6/uL Hemoglobin 15.3 11.5-16.0 g/dL Hematocrit 46 35-52 % Mean Corpuscular Volume 89 80-99 fL Mean Corpuscular Hemoglobin 30 25-34 pg Mean Corpuscular Hemoglobin Concent 33 32-36 g/dL Red Cell Distribution Width 13.2 10.0-14.5 % Platelet Count 280 130-400 10^3/uL Mean Platelet Volume 9.8 9.0-12.2 fL Immature Granulocyte % (Auto) 1 % Neutrophils (%) (Auto) 94 H 42-75 % Lymphocytes (%) (Auto) 3 L 12-44 % Monocytes (%) (Auto) 3 0-12 % Eosinophils (%) (Auto) 0 0-10 % Basophils (%) (Auto) 0 0-10 % Neutrophils # (Auto) 14.5 H 1.8-7.8 10^3/uL Lymphocytes # (Auto) 0.4 L 1.0-4.0 10^3/uL Monocytes # (Auto) 0.5 0.0-1.0 10^3/uL Eosinophils # (Auto) 0.0 0.0-0.3 10^3/uL Basophils # (Auto) 0.0 0.0-0.1 10^3/uL Immature Granulocyte # (Auto) 0.1 0.0-0.1 10^3/uL Neutrophils % (Manual) 95 % Lymphocytes % (Manual) 3 % Monocytes % (Manual) 2 % Blood Morphology Comment NORMAL Sodium Level 142 135-145 MMOL/L Potassium Level 4.7 3.6-5.0 MMOL/L Chloride Level 105 98-107 MMOL/L Carbon Dioxide Level 18 L 21-32 MMOL/L Anion Gap 19 H 5-14 MMOL/L Blood Urea Nitrogen 19 H 7-18 MG/DL Creatinine 0.84 0.60-1.30 MG/DL Estimat Glomerular Filtration Rate > 60 BUN/Creatinine Ratio 23 Glucose Level 91 70-105 MG/DL Calcium Level 9.3 8.5-10.1 MG/DL Corrected Calcium 8.5-10.1 MG/DL Total Bilirubin 1.1 H 0.1-1.0 MG/DL Aspartate Amino Transf (AST/SGOT) 19 5-34 U/L Alanine Aminotransferase (ALT/SGPT) 13 0-55 U/L Alkaline Phosphatase 60 40-136 U/L C-Reactive Protein High Sensitivity 0.63 H 0.00-0.50 MG/DL Total Protein 8.2 6.4-8.2 GM/DL Albumin 4.8 H 3.2-4.5 GM/DL Lipase 16 8-78 U/L Serum Test, Qualitative NEGATIVE NEGATIVE Influenza Type A (RT-PCR) Not Detected Not Detecte Influenza Type B (RT-PCR) Not Detected Not Detecte SARS-CoV-2 RNA (RT-PCR) Not Detected Not Detecte My Shannon Ortega - MARIE TEMPLE MD Cbc With Automated Diff (02/24/21 21:12) Comprehensive Metabolic Panel (02/24/21 21:12) Hs C Reactive Protein (02/24/21 21:12) Hcg,Qualitative Serum (02/24/21 21:12) Lipase (02/24/21 21:12) Ed Iv/Invasive Line Start (02/24/21 21:12) Ondansetron Injection (Zofran Injectio (02/24/21 22:15) Fentanyl Inj (Sublimaze Injection) (02/24/21 22:15) Lactated Ringers (Lr 1000 Ml Iv Solution (02/24/21 22:15) Famotidine Injection (Pepcid Injection) (02/24/21 22:15) Covid 19 Inhouse Test (02/24/21 22:09) Influenza A And B By Pcr (02/24/21 22:09) Manual Differential (02/24/21 21:50) Promethazine Injection (Phenergan Injec (02/25/21 00:00) Lactated Ringers (Lr 1000 Ml Iv Solution (02/25/21 00:00) Lidocaine 2% Viscous 15 Ml (Xylocaine Vi (02/25/21 00:00) Antacid Suspension (Mylanta Suspension (02/25/21 00:00) Ketorolac Injection (Toradol Injection) (02/25/21 00:00) Medications Given in ED Vital Signs/I&O 02/24/21 02/25/21 21:45 02:00 Temp 37.1 36.9 Pulse 90 92 Resp 18 17 B/P (MAP) 120/76 (91) 107/72 (91) Pulse Ox 100 98 O2 Delivery Room Air Room Air 02/25/21 00:00 Intake Total 1000 ml Balance 1000 ml Blood Pressure Mean: 91 Progress Progress Note : Progress Note She was initially treated with IV fluids, Pepcid, Zofran, and fentanyl. Nausea was refractory and she was further treated with Phenergan. Work-up suggested dehydration. A second liter of IV fluid was infused. We discussed options at that point which included the possibility of a CT scan. After discussion of risks and benefits, patient elected to not proceed with CT scan. She was treated with GI cocktail and Toradol. Pain was much improved after these therapies and patient wished to return home with careful observation. Departure Impression Primary Impression: Epigastric pain Additional Impression: Pelvic pain Disposition: 01 HOME, SELF-CARE Condition: Improved Departure-Patient Inst. Decision time for Depature: 01:44 Referrals: NO,LOCAL PHYSICIAN (PCP/Family) Primary Care Physician Patient Instructions: Acid Reflux and Gastroesophageal Reflux Disease in A dults, Severe Abdominal Pain, Adult (DC) Add. Discharge Instructions: Start with a noncarbonated clear liquid diet. Gradually advance your diet with small quantities of bland food as tolerated. Take Pepcid for the next 2 weeks as prescribed. Use Zofran (ondansetron) as prescribed for nausea and vomiting. Call with questions or concerns. Return to the ER if you have worsening symptoms. All discharge instructions reviewed with patient and/or family. Voiced understanding. Scripts Famotidine (Pepcid) 20 Mg Tablet 20 MG PO BID, #30 TAB Prov: MARIE TEMPLE MD 02/25/21 Ondansetron HCl (Zofran) 4 Mg Tab 4 MG SL Q4H PRN for NAUSEA/VOMITING, #10 TAB Prov: MARIE TEMPLE MD 02/25/21 Copy Copies To 1: ERIK LÓPEZ JOSHUA T MD Feb 25, 2021 01:47
[2021-02-25] MEDS ORDERED: ONDN4T SL (01:49)
[2021-02-25] MEDS ORDERED: FAMO-119 PO (01:49)
[2021-02-25 02:00] VITALS: BP 107/72
== END 2021-02-25 02:00 | disposition home or self-care (01) ==
LOC: EDUNIT# 20:58 → ER 21:00
DX: R10.13 Epigastric pain (principal); R10.2 Pelvic and perineal pain; K21.9 Gastro-esophageal reflux disease without esophagitis; Z20.822 Contact with and (suspected) exposure to COVID-19; Z79.899 Other long term (current) drug therapy
CPT/HCPCS: 36415; 80053; 81000; 83690; 84703; 85007; 85027; 86141; 87636

== ENCOUNTER 2022-08-12 10:38 | Emergency (ER) | payer MEDICAID ==
[~2022-08-12] VITALS: Ht 175 cm; Wt 56.7 kg
[~2022-08-12 10:38] MED LIST changes: +FAMO-119 PO; +ONDN4T SL
[2022-08-12] MEDS ORDERED: CEPH500T PO (10:56)
--- NOTE | 2022-08-12 10:56 | ED EENT ---
History of Present Illness General Chief Complaint: Oral/Throat Problems Stated Complaint: SORE THROAT Nursing Triage Note: PT STATES SORE THROAT FOR A COUPLE DAYS Source: patient Exam Limitations: no limitations History of Present Illness Date Seen by Provider: Aug 12, 2022 Time Seen by Provider: 10:52 Initial Comments Sore throat x2 days. nO fevers no cough. Reports that she had strep, flu, and covid last month. Timing/Duration: abrupt Severity: moderate, severe Location: throat Prearrival Treatment: over the counter meds Associated Symptoms: denies symptoms Allergies and Home Medications Allergies Coded Allergies: amoxicillin (Verified Allergy, Unknown, 05/01/17) clavulanic acid (Verified Allergy, Unknown, 05/01/17) Patient Home Medication List Home Medication List Reviewed: Yes Docusate Sodium (Docusate Sodium) 100 Mg Capsule, 100 MG PO BID Prescribed by: VIRIDIANA HERNANDEZ on 05/10/19 075 Famotidine (Pepcid) 20 Mg Tablet, 20 MG PO BID Prescribed by: MARIE CHEEK on 02/25/21 014 Ibuprofen (Ibuprofen) 800 Mg Tablet, 800 MG PO Q6HR Prescribed by: VIRIDIANA HERNANDEZ on 05/10/19 075 Ondansetron HCl (Zofran) 4 Mg Tab, 4 MG SL Q4H PRN for NAUSEA/VOMITING Prescribed by: MARIE CHEEK on 02/25/21 014 Oxycodone HCl/Acetaminophen (Percocet 5-325 mg Tablet) 1 Each Tablet, 1 TAB PO Q4H PRN for PAIN-MODERATE Prescribed by: VIRIDIANA HERNANDEZ on 05/10/19 075 Ranitidine HCl (Zantac) 150 Mg Tablet, 150 MG PO DAILY, (Reported) Entered as Reported by: ELVIN CHOI on 05/09/19 1414 Review of Systems Review of Systems Constitutional: see HPI Eyes: No Symptoms Reported Ears: No Symptoms Reported Nose: no symptoms reported Mouth: no symptoms reported Throat: see HPI Respiratory: no symptoms reported Cardiovascular: no symptoms reported Musculoskeletal: no symptoms reported Skin: no symptoms reported Neurological: No Symptoms Reported Hematologic/Lymphatic: No Symptoms Reported Past Aasvutt-Edvzqd-Nytrsb Hx Patient Social History Tobacco Use?: Yes Smoking Status: Former Smoker Use of E-Cig and/or Vaping dev: No Substance use?: No Alcohol Use?: No Immunizations Up To Date PED Vaccines UTD: Yes Influenza Vaccine Up-to-Date: No; Not Current First/Initial COVID19 Vaccinat: YES COVID19 Vaccine Patch Washer: KARLEY Seasonal Allergies Seasonal Allergies: No Past Medical History Surgery/Hospitalization HX: GERD Surgeries: No Respiratory: No Cardiac: No Neurological: No Genitourinary: No Gastrointestinal: No Musculoskeletal: No Endocrine: No HEENT: No Cancer: No Psychosocial: No Integumentary: No Blood Disorders: No Adverse Reaction/Blood Tranf: No Family Medical History Hypercholesterolemia 19 FATHER Hypertension 19 FATHER Physical Exam Vital Signs Vital Signs - First Documented 08/12/22 10:43 Temp 37.3 Pulse 107 Resp 20 B/P (MAP) 143/97 (112) Pulse Ox 98 O2 Delivery Room Air Height, Weight, BMI Height: 5'11.00" Weight: 120lbs. oz. 54.724112xi; 18.00 BMI Method:Stated General Appearance: WD/WN, no apparent distress Eyes: bilateral eye normal inspection, bilateral eye PERRL, bilateral eye EOMI Ears: bilateral ear auricle normal, bilateral ear canal normal, bilateral ear TM normal Nose: normal inspection Mouth/Throat: normal mouth inspection, pharynx normal, tonsillar exudate, other (Pharyngeal erythema with exudate no swelling to suggest peritonsillar abscess) Neck: lymphadenopathy (R), lymphadenopathy (L) Cardiovascular: regular rate, rhythm, no murmur Respiratory: normal breath sounds, no respiratory distress, no accessory muscle use Gastrointestinal: normal bowel sounds, non tender Neurologic/Psychiatric: normal mood/affect, oriented x 3 Skin: normal color, warm/dry Progress/Results/Core Measures Results/Orders My Orders Orders - JUAN BLEVINS APRN Rapid Strep A Screen (08/12/22 10:49) Ketorolac Injection (Toradol Injection) (08/12/22 11:00) Dexamethasone Injection (Decadron Inje (08/12/22 11:00) Hydrocodone/Apap 5/325 Tablet (Lortab 5 (08/12/22 11:00) Vital Signs/I&O 08/12/22 10:43 Temp 37.3 Pulse 107 Resp 20 B/P (MAP) 143/97 (112) Pulse Ox 98 O2 Delivery Room Air Blood Pressure Mean: 112 Departure Impression Primary Impression: Pharyngitis Disposition: 01 HOME, SELF-CARE Condition: Stable Departure-Patient Inst. Decision time for Depature: 10:55 Referrals: NO,LOCAL PHYSICIAN (PCP/Family) Primary Care Physician Patient Instructions: Sore Throat, Adult (DC) Add. Discharge Instructions: 1. Tylenol and ibuprofen for pain control. The steroids will help. This steroid injection will last for couple of days. Take the antibiotics as directed. Return to ER for any concerns. Follow-up with your doctor next week. [id number] Cepacol lozenges from [employer] or [employer] contain benzocaine, a topical numbing agent which can be very helpful for pain control. All discharge instructions reviewed with patient and/or family. Voiced understanding. Scripts Cephalexin (Cephalexin) 500 Mg Tablet 500 MG PO QID, #20 TAB Prov: JUAN BLEVINS APRN 08/12/22 JUAN BLEVINS APRN Aug 12, 2022 10:56
[2022-08-12] MEDS ORDERED: KETOROLAC 60 MG/2 ML VIAL IM ONE (11:00)
[2022-08-12] MEDS ORDERED: HYDROcodone/APAP 5 MG/325 MG (LORTAB) TAB PO ONE (11:00)
[2022-08-12 11:25] VITALS: BP 143/97
== END 2022-08-12 11:25 | disposition home or self-care (01) ==
LOC: EDUNIT# 10:38 → ER 10:40
DX: J02.9 Acute pharyngitis, unspecified (principal); Z88.1 Allergy status to other antibiotic agents; Z87.891 Personal history of nicotine dependence; Z28.311 Partially vaccinated for COVID-19
CPT/HCPCS: 87430; 99284

== ENCOUNTER 2023-04-17 12:29 | Outpatient (CLI) | payer MEDICAID ==
[~2023-04-17] VITALS: Ht 175.3 cm; Wt 68.7 kg
[~2023-04-17 12:29] MED LIST changes: +CEPH500T PO
[2023-04-17 12:38] VITALS: BP 113/67
[2023-04-17] MEDS ORDERED: PREN-172 PO (12:54)
[2023-04-17] MEDS ORDERED: ONDA4TAB11 SL (12:54)
[2023-04-17] MEDS ORDERED: DESV50TA PO (12:54)
[2023-04-17] MEDS ORDERED: DOCU100T2 PO (12:54)
[2023-04-17] MEDS ORDERED: FERR-84 PO (12:54)
[2023-04-17] MEDS ORDERED: DOXY25TA35 PO (12:54)
[2023-04-17 13:10] VITALS: BP 113/67
--- NOTE | 2023-04-18 08:10 | Physician Query-Final Dx ---
MELIA,04/18/23 0810: Clinic Account Progress/Dx Physician Query: Please give diagnosis Please include # of weeks gestation Date of Service Apr 17, 2023 at 12:29 MAX SHEETS DO 04/18/23 1132: Clinic Account Progress/Dx DIAGNOSIS: Diagnosis 31 week IUP Vaginal discharge Urinary incontinence MELIA,AugApr 18, 2023 08:10 MAX SHEETS DO Apr 18, 2023 11:32
== END 2023-04-17 13:12 ==
LOC: WSo 12:29 → LDRP 12:29 → WSo 13:12
PROVIDERS: ATTEND Obstetrics & Gynecology
DX: O34.63 Maternal care for abnormality of vagina, third trimester (principal); O23.40 Unspecified infection of urinary tract in pregnancy, unspecified trimester; Z3A.31 31 weeks gestation of pregnancy
CPT/HCPCS: 99213

== ENCOUNTER 2023-06-10 05:55 | Inpatient (IN) | payer MEDICAID ==
[2023-06-10] VITALS (39 sets, daily range): BP systolic 112–163; BP diastolic 52–93
[~2023-06-10 05:55] MED LIST changes: +DESV50TA PO; +DOCU100T2 PO; +DOXY25TA35 PO; +FERR-84 PO; +ONDA4TAB11 SL; +PREN-172 PO
[2023-06-10 06:49] LABS: AMORPHOUS SEDIMENT,UR FEW AMOR PHOSPHATE /LPF; BACTERIA,URINE MODERATE /HPF; BILIRUBIN,URINE NEGATIVE (NEGATIVE); CLARITY,URINE CLEAR; COLOR,URINE YELLOW; GLUCOSE, URINE (UA) NEGATIVE (NEGATIVE); KETONES,URINE NEGATIVE (NEGATIVE); LEUKOCYTE ESTERASE ,URINE 1+ (NEGATIVE); NITRITE,URINE NEGATIVE (NEGATIVE); PROTEIN,URINE TRACE (NEGATIVE)
[2023-06-10] MEDS ORDERED: LIDOCAINE 2% w/EPI 1:200,000 20 ML VIAL INJ PRN (07:00)
[2023-06-10] MEDS ORDERED: D5 LR 1,000 ML IV SOLN 1,000 ML IV SCH (07:00)
[2023-06-10] MEDS ORDERED: LACTATED RINGERS 1,000 ML 500 ML IV PRN (07:00)
[2023-06-10 07:11] LABS: BASOPHILS # (AUTO) 0.1 10^3/uL (0.0-0.1); BASOPHILS % (AUTO) 1 % (0-10); EOSINOPHILS # (AUTO) 0.1 10^3/uL (0.0-0.3); EOSINOPHILS % (AUTO) 1 % (0-10); HEMATOCRIT 42 % (35-52); HEMOGLOBIN 11.7 g/dL (11.5-16.0); LYMPHOCYTES # (AUTO) 3.1 10^3/uL (1.0-4.0); LYMPHOCYTES % (AUTO) 24 % (12-44); MEAN CORPUSCULAR HEMOGLOBIN 27 pg (25-34); MEAN CORPUSCULAR HGB CONC 28 g/dL (32-36); MEAN CORPUSCULAR VOLUME 97 fL (80-99); MONOCYTES # (AUTO) 1.6 10^3/uL (0.0-1.0); MONOCYTES % (AUTO) 12 % (0-12); NEUTROPHILS # (AUTO) 7.8 10^3/uL (1.8-7.8); NEUTROPHILS % (AUTO) 61 % (42-75); PLATELET COUNT 247 10^3/uL (130-400); WHITE BLOOD COUNT 12.8 10^3/uL (4.3-11.0)
[2023-06-10] MEDS ORDERED: fentaNYL 2 mcg/ml BUPIVA 0.125 100 ML ONE (07:17)
[2023-06-10] MEDS ORDERED: fentaNYL INJECTION 100 MCG/2 ML VIAL ONE (08:23)
[2023-06-10] MEDS ORDERED: OXYTOCIN DRIP PRE-MIX 500 ML IV ONE (09:18)
[2023-06-10] MEDS ORDERED: OXYTOCIN DRIP PRE-MIX 500 ML IV SCH ×2 (09:30→11:00)
--- NOTE | 2023-06-10 09:31 | History & Physical-OB ---
OB - Chief Complaint & HPI Date/Time Date of Admission: Date of Admission: Jun 10, 2023 at 06:56 Date seen by a Provider: Jun 10, 2023 Time Seen by a Provider: 09:10 Chief Complaint/History OB-Reason for Admission/Chief: Onset of Labor Hx : 2 Hx Para: 1 Expected Date of Delivery: Jun 16, 2023 Gestational Age in Weeks: 39 Gestational Age in Days: 1 Admission Nurse Assessment Rev: Yes History of Labs A pos Antibody neg RI RPR NR HBsAg NR HIV NR GC neg GBS neg Allergies and Home Medications Allergies Coded Allergies: amoxicillin (Verified Allergy, Unknown, 05/01/17) clavulanic acid (Verified Allergy, Unknown, 05/01/17) Patient Home Medication List Home Medication List Reviewed: Yes Desvenlafaxine Succinate (Pristiq ER) 50 Mg Tab.er.24h, 50 MG PO DAILY, (Reported) Entered as Reported by: ELVIN CHOI on 04/17/23 1254 Docusate Sodium (Docusate Sodium) 100 Mg Tablet, 100 MG PO DAILY, (Reported) Entered as Reported by: ELVIN CHOI on 04/17/23 1254 Doxylamine Succinate (Unisom Sleep Aid) 25 Mg Tablet, 25 MG PO DAILY, (Reported) Entered as Reported by: ELVIN CHOI on 04/17/23 1254 Ferrous Sulfate (Iron) 325 Mg (65 Mg Iron) Tablet, 325 MG PO DAILY, (Reported) Entered as Reported by: ELVIN CHOI on 04/17/23 1254 Ondansetron (Ondansetron Odt) 4 Mg Tab.rapdis, 4 MG SL Q4H PRN for NAUSEA/VOMITING, (Reported) Entered as Reported by: ELVIN CHOI on 04/17/23 1254 Vit No.179/Iron/Folic ( Tablet) 28 Mg Iron-800 Mcg Tablet, 1 EACH PO DAILY, (Reported) Entered as Reported by: ELVIN CHOI on 04/17/23 1254 OB - History Hx of Present Care: Yes Ultrasounds: Normal mid trimester US Obstetrical Complications: None (abnormal NIPT test) Medical Complications: None 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, also mild renal pyelectasis Delivery History Adverse Rxn to Tranfusion: No Patient Past Medical History nc Social History/Family History 2nd Hand Smoke Exposure: No Immunizations First/Initial COVID19 Vaccine: YES Hepatitis B: Yes OB - Admission Exam Physical Exam Vitals: Vital Signs 06/10/23 06:10 Temp 36.7 Pulse 74 Resp 18 Pulse Ox 100 O2 Delivery Room Air HEENT: NCAT Heart: Rhythm Normal Lungs: Clear Abdomen: Gravid Extremities: Normal Reflexes: Normal Cervical Dilatation: 7cm Effacement: 75% Station: -1 Membranes: Intact Heart Rate: 130's Accelerations: Accelerations Present Decelerations: No Decelerations Short Term Variability: Present Fdc Variability: Average (6-25) Contractions on Admission: < 5 Minutes Apart Labs Laboratory Tests Test 06/10/23 06:00 06/10/23 06:15 06/10/23 06:55 Range/Units Urine Color YELLOW Urine Clarity CLEAR Urine pH 7.0 5-9 Urine Specific [place] 1.020 1.016-1.022 Urine Protein TRACE H NEGATIVE Urine Glucose (UA) NEGATIVE NEGATIVE Urine Ketones NEGATIVE NEGATIVE Urine Nitrite NEGATIVE NEGATIVE Urine Bilirubin NEGATIVE NEGATIVE Urine Urobilinogen 0.2 < = 1.0 MG/DL Urine Leukocyte Esterase 1+ H NEGATIVE Urine RBC (Auto) NEGATIVE NEGATIVE Urine RBC 2-5 H /HPF Urine WBC 5-10 H /HPF Urine Squamous Epithelial Cells 5-10 /HPF Urine Crystals PRESENT H /LPF Urine Amorphous Sediment FEW DALILA PHOSPHATE H /LPF Urine Bacteria MODERATE H /HPF Urine Casts NONE /LPF Urine Mucus SMALL H /LPF Urine Culture Indicated YES Membranes Rupture NEGATIVE White Blood Count 12.8 H 4.3-11.0 10^3/uL Red Blood Count 4.31 3.80-5.11 10^6/uL Hemoglobin 11.7 11.5-16.0 g/dL Hematocrit 42 35-52 % Mean Corpuscular Volume 97 80-99 fL Mean Corpuscular Hemoglobin 27 25-34 pg Mean Corpuscular Hemoglobin Concent 28 L 32-36 g/dL Red Cell Distribution Width 14.2 10.0-14.5 % Platelet Count 247 130-400 10^3/uL Mean Platelet Volume 11.0 9.0-12.2 fL Immature Granulocyte % (Auto) 1 % Neutrophils (%) (Auto) 61 42-75 % Lymphocytes (%) (Auto) 24 12-44 % Monocytes (%) (Auto) 12 0-12 % Eosinophils (%) (Auto) 1 0-10 % Basophils (%) (Auto) 1 0-10 % Neutrophils # (Auto) 7.8 1.8-7.8 10^3/uL Lymphocytes # (Auto) 3.1 1.0-4.0 10^3/uL Monocytes # (Auto) 1.6 H 0.0-1.0 10^3/uL Eosinophils # (Auto) 0.1 0.0-0.3 10^3/uL Basophils # (Auto) 0.1 0.0-0.1 10^3/uL Immature Granulocyte # (Auto) 0.1 0.0-0.1 10^3/uL Syphilis Total Antibody Negative Negative OB - Assessment/Plan/Diagnosis Assessment Assessment: active labor Admission Dx 28 yo @ 39.1 Active labor Abnormal NIPT testing Hx of renal pyelectasis GBS neg Admission Status: Inpatient Order (span 2 midnights) Reason for Inpatient Admission: Active labor at 39 weeks Plan Plan: Expectant Management MAX SHEETS DO Jun 10, 2023 09:31
[2023-06-10] MEDS ORDERED: CATHETER FLUSH 10 ML SYR IV PRN (09:45)
[2023-06-10] MEDS ORDERED: NALOXONE 0.4 MG/ML 1 ML VIAL IV PRN ×2 (09:45→11:00)
[2023-06-10] MEDS ORDERED: LACTATED RINGERS 1,000 ML 1,000 ML IV ONE (09:45)
[2023-06-10] MEDS ORDERED: fentaNYL 2 mcg/ml BUPIVA 0.125 100 ML EPI SCH (09:45)
--- NOTE | 2023-06-10 10:59 | OB Labor & Delivery Record ---
L&D History Date of Service Date of Service: Jun 10, 2023 History Expected Date of Delivery: Jun 16, 2023 Gestational Age in Weeks: 39 Hx : 2 Hx Para: 1 Complications Events: Routine care Abnormal NIPT with XXY mosaicism suggested, renal pyelectasis Intrapartal Events: None L&D Stage1 Stage One Onset of Labor - Date: Jun 10, 2023 Monitors and Tracing Monitor Mode: External Heart Rate: 130 Monitor Accelerations: Uniform Monitor Decelerations: None Shelter Variability: Average (6-10) Short Term Variability: Present Presentation: Vertex Vital Signs VS - Last 72 Hours, by Label 06/10/23 06/10/23 06/10/23 06/10/23 06:10 07:32 08:03 08:06 Temp 36.7 36.8 Pulse 74 76 83 Resp 18 18 18 B/P (MAP) 135/63 (87) 138/67 (90) Pulse Ox 100 100 O2 Delivery Room Air Room Air Room Air 06/10/23 06/10/23 06/10/23 06/10/23 08:09 08:13 08:16 08:19 Pulse 80 80 78 85 Resp 18 18 18 18 B/P (MAP) 136/61 (86) 130/68 (88) 130/76 (94) 125/74 (91) Pulse Ox 100 99 100 O2 Delivery Room Air Room Air Room Air Room Air 06/10/23 06/10/23 06/10/23 06/10/23 08:23 08:25 08:28 08:31 Pulse 97 110 83 82 Resp 18 18 18 18 B/P (MAP) 129/68 (88) 127/73 (91) 127/68 (87) 128/68 (88) Pulse Ox 100 100 O2 Delivery Room Air Room Air Room Air Room Air 06/10/23 06/10/23 06/10/23 06/10/23 08:34 08:37 08:39 08:43 Pulse 94 96 93 78 Resp 18 18 18 18 B/P (MAP) 131/67 (88) 133/72 (92) 129/68 (88) 126/68 (87) Pulse Ox 100 100 100 O2 Delivery Room Air Room Air Room Air Room Air 06/10/23 06/10/23 06/10/23 06/10/23 08:45 08:51 08:58 09:01 Pulse 90 100 90 99 Resp 18 18 18 18 B/P (MAP) 125/67 (86) 116/71 (86) 126/72 (90) 126/74 (91) Pulse Ox 100 100 O2 Delivery Room Air Room Air Room Air Room Air 06/10/23 06/10/23 06/10/23 06/10/23 09:07 09:12 09:18 09:21 Pulse 111 97 93 93 Resp 18 18 18 18 B/P (MAP) 126/78 (94) 118/71 (87) 126/82 (97) 123/69 (87) Pulse Ox 100 100 100 O2 Delivery Room Air Room Air Room Air Room Air 06/10/23 06/10/23 09:28 09:33 Pulse 87 83 Resp 18 18 B/P (MAP) 125/52 (76) 119/59 (79) Pulse Ox 100 100 O2 Delivery Room Air Room Air Rupture of Membranes Spontaneous Ruture of Membrane: Yes Amniotic Membrane Rupture Time: 08:45 Amniotic Membrane Fluid Desc.: Clear Vaginal Bleeding Description: Normal Show Induction/Anesthesia Epidural Cath Placement - Time: 0812 Progress/Notes Patient admitted in active labor. AROM performed after epidural was placed. She rapidly progressed after AROM to complete and + 2 station. L&D Stage2 Stage Two Stage II Date: Jun 10, 2023 Monitors and Tracing Monitor Mode: External Heart Rate: 130 Monitor Accelerations: Uniform Monitor Decelerations: Variable Shelter Variability: Average (6-10) Position: Right Occiput Anterior Presentation: Vertex Cord Descript/Complications Cord Vessel Description: 3 Vessels Complications nuchal cord reduced after delivery of the head Delivery Type Delivery Method: Spontaneous Vaginal Episiotomy/Perineal Laceration Laceraction(s)/Extensions: Yes Episiotomy Description: Perineal Extension/lac, 1st degree Degree (describe repair) repaired using 3-0 rapide in usual fashion Condition of Delivery 1 minute Comment: 8 5 minute Comment: 9 Notes Live male weight pending Condition of Condition of : Living Exam: No Observed Abnormalities Resuscitation Resuscitation: N/A - Spontaneous Resp L&D Stage3 Stage Three Stage III Date: Jun 10, 2023 Pictocin Pitocin Administration Comment: 30 mu wide open after delivery of placenta Placenta Delivery Placenta Delivery: Spontaneous Delivery Summary Summary Estimated blood loss (mL): 350 Attending at delivery: Max Sheets DO Condition of Delivery Examined: Cervix Examined, Uterus Explored Post Hemorrhage: No Condition of Mother stable Condition of Infant (s) stable MAX SHEETS DO Jun 10, 2023 10:59
[2023-06-10] MEDS ORDERED: BENZOCAINE/MENTHOL (DERMOPLAST) 56 ML CAN TP PRN (11:00)
[2023-06-10] MEDS ORDERED: WITCH HAZEL(TUCKS) 40 EA JAR TOP PRN (11:00)
[2023-06-10] MEDS ORDERED: MEASLES, MUMPS, RUBELLA VACCINE (MMR) SQ ONE (11:00)
[2023-06-10] MEDS ORDERED: DIBUCAINE 1% OINTMENT 28 GM TUBE TOP PRN (11:00)
[2023-06-10] MEDS ORDERED: Tetanus/Diphtheria/Pertussis (Acell) ADULT Vaccine 0.5 ML IM ONE (11:00)
[2023-06-10] MEDS: IBUPROFEN 600 MG TABLET PO SCH ×2 (12:48→19:48)
[2023-06-10] MEDS ORDERED: CATHETER FLUSH 10 ML SYR IV SCH ×2 (14:00)
[2023-06-10] MEDS: ACETAMINOPHEN 500 MG TABLET PO SCH ×2 (16:31→23:07)
[2023-06-10] MEDS: DOCUSATE SODIUM 100 MG CAPSULE PO SCH (19:48)
[2023-06-11] MEDS: IBUPROFEN 600 MG TABLET PO SCH ×2 (02:13→08:38)
[2023-06-11 04:55] VITALS: BP 122/70
[2023-06-11] MEDS: ACETAMINOPHEN 500 MG TABLET PO SCH (04:56)
[2023-06-11 06:19] LABS: BASOPHILS # (AUTO) 0.1 10^3/uL (0.0-0.1); BASOPHILS % (AUTO) 1 % (0-10); EOSINOPHILS # (AUTO) 0.2 10^3/uL (0.0-0.3); EOSINOPHILS % (AUTO) 1 % (0-10); HEMATOCRIT 27 % (35-52); HEMOGLOBIN 8.9 g/dL (11.5-16.0); LYMPHOCYTES # (AUTO) 3.2 10^3/uL (1.0-4.0); LYMPHOCYTES % (AUTO) 22 % (12-44); MEAN CORPUSCULAR HEMOGLOBIN 28 pg (25-34); MEAN CORPUSCULAR HGB CONC 33 g/dL (32-36); MEAN CORPUSCULAR VOLUME 84 fL (80-99); MEAN PLATELET VOLUME 10.9 fL (9.0-12.2); MONOCYTES # (AUTO) 1.7 10^3/uL (0.0-1.0); MONOCYTES % (AUTO) 12 % (0-12); NEUTROPHILS # (AUTO) 9.3 10^3/uL (1.8-7.8); NEUTROPHILS % (AUTO) 64 % (42-75); PLATELET COUNT 214 10^3/uL (130-400); WHITE BLOOD COUNT 14.4 10^3/uL (4.3-11.0)
[2023-06-11] MEDS ORDERED: PRENATAL VITAMIN TABLET PO SCH (07:00)
[2023-06-11] MEDS: DOCUSATE SODIUM 100 MG CAPSULE PO SCH (08:38)
[2023-06-11 08:39] VITALS: BP 126/83
--- NOTE | 2023-06-11 09:07 | Postpartum Progress Note ---
Note Note Day # 1 Subjective: Patient is without complaints. Ambulating, voiding. Tolerating a regular diet without nausea or vomiting. Normal lochia. Pain is well controlled with oral pain medications. Objective: Physical Exam: General - Alert and oriented, no apparent distress Abdomen - Soft, appropriately tender to palpation, non-distended, fundus firm at umbilicus Extremities - no edema, negative Darrick's bilaterally Assessment: PPD 1 NVD Acute blood loss anemia Plan: Routine care. Encourage breast feeding. Encourage ambulation. Ferrous sulfate supplementation. Plan for discharge today Vitals - Labs Vital Signs - I&O Vital Signs Date Time Temp Pulse Resp B/P (MAP) Pulse Ox O2 Delivery O2 Flow Rate FiO2 06/11/23 08:39 36.3 83 18 126/83 (97) Room Air 06/11/23 04:55 36.3 77 18 122/70 (87) 96 Room Air 06/10/23 23:22 36.2 72 18 117/69 (85) 99 Room Air 06/10/23 19:50 36.5 76 18 124/74 (91) 97 Room Air 06/10/23 16:29 36.4 88 18 138/78 (98) 100 Room Air 06/10/23 12:49 88 18 121/79 (93) Room Air 06/10/23 12:35 94 18 116/70 (85) Room Air 06/10/23 12:20 85 18 126/77 (93) Room Air 06/10/23 12:05 87 18 128/82 (97) Room Air 06/10/23 11:50 90 18 157/70 (99) Room Air 06/10/23 11:35 37.0 104 18 125/85 (98) Room Air 06/10/23 11:20 91 18 126/84 (98) Room Air 06/10/23 11:18 37.2 06/10/23 11:05 87 18 130/73 (92) Room Air 06/10/23 11:00 37.3 06/10/23 10:50 99 18 140/80 (100) Room Air 06/10/23 10:22 115 18 163/93 (116) 100 Room Air 06/10/23 09:51 80 18 112/58 (76) 100 Room Air 06/10/23 09:33 83 18 119/59 (79) 100 Room Air 06/10/23 09:28 87 18 125/52 (76) 100 Room Air 06/10/23 09:21 93 18 123/69 (87) 100 Room Air 06/10/23 09:18 93 18 126/82 (97) 100 Room Air 06/10/23 09:12 97 18 118/71 (87) 100 Room Air 06/10/23 09:07 111 18 126/78 (94) Room Air I & O 06/11/23 07:00 Intake Total 1000 ml Balance 1000 ml Labs Laboratory Tests 06/11/23 06:05: White Blood Count 14.4H, Red Blood Count 3.22L, Hemoglobin 8.9#L, Hematocrit 27L , Mean Corpuscular Volume 84, Mean Corpuscular Hemoglobin 28, Mean Corpuscular Hemoglobin Concent 33, Red Cell Distribution Width 14.2, Platelet Count 214, Mean Platelet Volume 10.9, Immature Granulocyte % (Auto) 1, Neutrophils (%) ( Auto) 64, Lymphocytes (%) (Auto) 22, Monocytes (%) (Auto) 12, Eosinophils (%) (Auto) 1, Basophils (%) (Auto) 1, Neutrophils # (Auto) 9.3H, Lymphocytes # (Auto) 3.2, Monocytes # (Auto) 1.7H, Eosinophils # (Auto) 0.2, Basophils # (Auto) 0.1, Immature Granulocyte # (Auto) 0.1 MAX SHEETS DO Jun 11, 2023 09:07
--- NOTE | 2023-06-11 09:09 | Discharge Inst-Women's Service ---
Discharge Inst-Women's Serv Depart Medication/Instructions New, Converted or Re-Newed RX: Transmitted to Pharmacy Final Diagnosis POD 1 NVD Problems Reviewed?: Yes Consults/Follow Up Additional Follow Up: Yes Orders/Referrals Dr. Sheets in 6 weeks Activity Activity: Activity as Tolerated Driving Instructions: No Driving for 1 Week NO SMOKING: NO SMOKING Nothing Inside Vagina: No Douching, No [place], No Tampons Diet Discharge Diet: No Restrictions Symptoms to Report to : Bleeding Excessive, Pain Increased, Fever Over 101 Degrees F, Vaginal Bleeding Increase, Questions/Concerns For Any Problems or Questions: Contact Your Physician MAX SHEETS DO Jun 11, 2023 09:08
[2023-06-11] MEDS ORDERED: IBUP-844 PO (09:10)
[2023-06-11] MEDS ORDERED: PNV1TABL67 PO (09:10)
[2023-06-11] MEDS ORDERED: ACET-93 PO (09:10)
[2023-06-11] MEDS ORDERED: BENZ78AE5 TP (09:10)
[2023-06-11] MEDS ORDERED: DIBU30OI TOP (09:10)
[2023-06-11] MEDS ORDERED: DOCU100C37 PO (09:10)
--- NOTE | 2023-06-11 12:38 | Anesthesia-Regional Post-Op ---
Regional Patient Condition Mental Status: Alert, Oriented x3 Circulation: Same as Pre-Op Headache: Absent Sensation: Full Recovery Motor Block: Absent Post Op Complications Complications None Follow Up Care/Instructions Patient Instructions None needed. Anesthesia/Patient Condition Patient is doing well, no complaints, stable vital signs, no apparent adverse anesthesia problems. No complications reported per nursing. FLORENCE ROMERO CRNA Jun 11, 2023 12:38
== END 2023-06-11 13:18 | disposition home or self-care (01) | DRG 806 ==
LOC: WSo 05:55 → LDRP 05:56 → WSo 06:56 → LDRP 13:03
PROVIDERS: ADMIT Obstetrics & Gynecology; ATTEND Obstetrics & Gynecology
PROC: 10E0XZZ Delivery of Products of Conception, External Approach (ICD-10-PCS; principal; 2023-06-10)
PROC: 0HQ9XZZ Repair Perineum Skin, External Approach (ICD-10-PCS; 2023-06-10)
DX: O70.0 First degree perineal laceration during delivery (principal); D62 Acute posthemorrhagic anemia; Z37.0 Single live birth; Z3A.39 39 weeks gestation of pregnancy; O69.81X0 Labor and delivery complicated by cord around neck, without compression, not applicable or unspecified; O90.81 Anemia of the puerperium; Z88.1 Allergy status to other antibiotic agents; Z91.09 Other allergy status, other than to drugs and biological substances
CPT/HCPCS: 36415; 81000; 84112; 85025; 86780; 86850; 86900; 86901; 87077; 87088; 87186